=== PATIENT | male | born 1975 | race Caucasian/White ===

== ENCOUNTER 2017-01-28 08:32 | Emergency (ER) | payer OTHER ==
[~2017-01-28] VITALS: Ht 180.3 cm; Wt 113.4 kg
[~2017-01-28 08:32] MED LIST: ACULAR 0.5%3 ML OPH; AUGMENTIN 875875 MG PO; BACTRIM DS 8001 TA1 PO; CEPHALEXIN500 M1 PO; CIPROFLOXACIN500 MG PO; CLINDAMYCIN HC300 MG PO; CORTISPORIN SUS10 ML OT; CYCLOBENZAPRINE10 MG PO; FLEXERIL10 MG PO; HYDROCODONE BIT1 T11 PO; KEFLEX500 MG PO; MOTRIN800 MG PO; NORCO 325 MG-101 TAB PO; NORCO 325 MG-51 TAB PO; NORCO 5-325 TA1 EACH PO; PERCOCET 325 MG1 TA2 PO; PREDNISONE10 MG PO; TOBREX OPHTH S2.5 ML OPH; VICODIN 5/500 505 MG PO; VICODIN ES 7501 TAB PO; Vicodin 5/500 505 MG; XANAX0.5 MG PO; ZITHROMAX Z PA250 MG PO
[2017-01-28] MEDS ORDERED: CELECOXIB200 MG PO (09:29)
== END 2017-01-28 10:07 | disposition home or self-care (01) ==
LOC: ED 08:32
DX: M16.11 Unilateral primary osteoarthritis, right hip (principal); G89.29 Other chronic pain; F17.200 Nicotine dependence, unspecified, uncomplicated

== ENCOUNTER 2017-10-27 08:23 | Emergency (ER) | payer OTHER ==
[~2017-10-27] VITALS: Ht 182.8 cm; Wt 115.7 kg
[~2017-10-27 08:23] MED LIST changes: +CELECOXIB200 MG PO
[2017-10-27] MEDS ORDERED: AMOXICILLIN500 M2 PO (08:38)
[2017-10-27] MEDS ORDERED: NORCO 10-325 T1 EACH PO (08:38)
== END 2017-10-27 08:54 | disposition home or self-care (01) ==
LOC: ED 08:23
DX: K08.89 Other specified disorders of teeth and supporting structures (principal); R50.9 Fever, unspecified; G89.29 Other chronic pain

== ENCOUNTER 2018-01-26 10:03 | Emergency (ER) | payer OTHER ==
[~2018-01-26] VITALS: Ht 182.8 cm; Wt 113.4 kg
[~2018-01-26 10:03] MED LIST changes: +AMOXICILLIN500 M2 PO; +NORCO 10-325 T1 EACH PO
[2018-01-26] MEDS ORDERED: Motrin,Rufen800 MG PO ×2 (11:27)
[2018-01-26] MEDS ORDERED: NORCO 10-325 T1 EACH PO (11:27)
== END 2018-01-26 11:38 | disposition home or self-care (01) ==
LOC: ED 10:03
DX: M16.11 Unilateral primary osteoarthritis, right hip (principal); G89.29 Other chronic pain

== ENCOUNTER 2019-01-15 07:59 | Inpatient (IN) | payer BC ==
[~2019-01-15] VITALS: Ht 182.8 cm; Wt 112.5 kg
[2019-01-15] VITALS (9 sets, daily range): BP systolic 124–152; BP diastolic 74–94
[~2019-01-15 07:59] MED LIST changes: +Motrin,Rufen800 MG PO; +SEPTDS PO
[2019-01-15 08:54] LABS: BASO % 0.4 % (0.0-1.0); EOS # 0.1 10*3/uL (0.0-0.4); EOS % 1.2 % (1.0-4.0); HEMATOCRIT 50.5 % (42.0-52.0); HEMOGLOBIN 17.2 g/dl (14.0-18.0); LYMPH # 2.4 10*3/uL (1.3-4.4); LYMPH % 21.3 % (27.0-41.0); MEAN CELL VOLUME 90.3 fl (80.0-94.0); MEAN CORPUSCULAR HGB 30.8 pg (27.0-31.0); MEAN CORPUSCULAR HGB CONC 34.1 g/dl (33.0-37.0); MEAN PLATELET VOLUME 9.5 fl (9.6-12.3); MONO # 0.7 10*3/uL (0.1-1.0); MONO % 6.4 % (3.0-9.0); NEUT # 7.9 10*3/uL (2.3-7.9); NEUT % 70.2 % (47.0-73.0); PLATELET COUNT AUTOMATED 241 10*3/uL (130-400); RED BLOOD COUNT 5.59 10*6/uL (4.50-5.90); RED CELL DISTRI WIDTH 12.5 % (0-14.5); WHITE BLOOD COUNT 11.2 10*3/uL (4.8-10.8)
[2019-01-15 09:06] LABS: ACT PARTIAL THROMBO TIME 26.5 SECONDS (20.0-32.1); INTERNATIONAL NORM RATIO 0.9 (2.0-3.5)
[2019-01-15 09:10] LABS: ALBUMIN 3.9 gm/dl (3.1-4.5); ALKALINE PHOSPHATASE 85 U/L (45-117); BUN 15 mg/dl (7-24); CHLORIDE 104 mmol/L (98-107); CREATININE 1.17 mg/dL (0.70-1.30); SGOT/AST 16 IU/L (3-35); SGPT/ALT 33 U/L (12-78); SODIUM 137 mmol/L (136-145); TOTAL PROTEIN 7.7 gm/dL (6.4-8.2)
[2019-01-15] MEDS ORDERED: HYDROCODONE-AC1 EACH PO (11:23)
[2019-01-16] VITALS: BP 148/89
[2019-01-16 06:48] LABS: BASO % 0.3 % (0.0-1.0); EOS # 0.2 10*3/uL (0.0-0.4); EOS % 2.2 % (1.0-4.0); HEMATOCRIT 45.1 % (42.0-52.0); LYMPH # 2.7 10*3/uL (1.3-4.4); LYMPH % 37.4 % (27.0-41.0); MEAN CELL VOLUME 90.6 fl (80.0-94.0); MEAN CORPUSCULAR HGB 30.1 pg (27.0-31.0); MEAN CORPUSCULAR HGB CONC 33.3 g/dl (33.0-37.0); MEAN PLATELET VOLUME 9.8 fl (9.6-12.3); MONO # 0.5 10*3/uL (0.1-1.0); MONO % 7.1 % (3.0-9.0); NEUT # 3.8 10*3/uL (2.3-7.9); NEUT % 52.7 % (47.0-73.0); PLATELET COUNT AUTOMATED 194 10*3/uL (130-400); RED BLOOD COUNT 4.98 10*6/uL (4.50-5.90); RED CELL DISTRI WIDTH 12.5 % (0-14.5); WHITE BLOOD COUNT 7.2 10*3/uL (4.8-10.8)
[2019-01-16 07:08] LABS: BUN 11 mg/dl (7-24); CHLORIDE 106 mmol/L (98-107); CREATININE 0.86 mg/dL (0.70-1.30); SODIUM 138 mmol/L (136-145)
[2019-01-16] MEDS ORDERED: DOXYCYCLINE100 M3 PO (10:00)
== END 2019-01-16 10:23 | disposition home or self-care (01) | DRG 348 ==
LOC: ED 07:59 → EDHOLD 08:32 → 4E 08:32
PROVIDERS: Emergency Medicine; Family Medicine; ADMIT Family Medicine
PROC: 0D9Q0ZZ Drainage of Anus, Open Approach (ICD-10-PCS; principal; 2019-01-15)
PROC: 0DJD8ZZ Inspection of Lower Intestinal Tract, Via Natural or Artificial Opening Endoscopic (ICD-10-PCS; principal; 2019-01-15)
DX: K61.0 Anal abscess (principal); L02.215 Cutaneous abscess of perineum; M13.851 Other specified arthritis, right hip; K61.1 Rectal abscess; F17.210 Nicotine dependence, cigarettes, uncomplicated; D72.829 Elevated white blood cell count, unspecified; I10 Essential (primary) hypertension; R73.9 Hyperglycemia, unspecified; E83.41 Hypermagnesemia; R00.0 Tachycardia, unspecified; F41.9 Anxiety disorder, unspecified; M06.9 Rheumatoid arthritis, unspecified; Z84.89 Family history of other specified conditions; Z79.899 Other long term (current) drug therapy; Z71.6 Tobacco abuse counseling; Z83.3 Family history of diabetes mellitus

== ENCOUNTER 2019-04-08 09:42 | Emergency (ER) | payer BC ==
[~2019-04-08] VITALS: Ht 182.8 cm; Wt 113.4 kg
[~2019-04-08 09:42] MED LIST changes: +DOXYCYCLINE100 M3 PO; +HYDROCODONE-AC1 EACH PO
[2019-04-08] MEDS ORDERED: AUGMENTIN 875875 MG PO (10:23)
[2019-04-08] MEDS ORDERED: PERCOCET 5-3251 EACH PO (10:23)
== END 2019-04-08 10:37 | disposition left against medical advice (07) ==
LOC: ED 09:42
DX: K61.1 Rectal abscess (principal); R51 Headache; I10 Essential (primary) hypertension; F17.210 Nicotine dependence, cigarettes, uncomplicated; Z79.2 Long term (current) use of antibiotics

== ENCOUNTER 2019-05-07 08:23 | Emergency (ER) | payer BC ==
[~2019-05-07] VITALS: Ht 182.8 cm; Wt 115.7 kg
[~2019-05-07 08:23] MED LIST changes: +PERCOCET 5-3251 EACH PO
[2019-05-07 09:14] LABS: BASO % 0.7 % (0.0-1.0); EOS # 0.2 10*3/uL (0.0-0.4); EOS % 3.2 % (1.0-4.0); HEMATOCRIT 47.6 % (42.0-52.0); HEMOGLOBIN 16.2 g/dl (14.0-18.0); LYMPH # 2.2 10*3/uL (1.3-4.4); LYMPH % 39.1 % (27.0-41.0); MEAN CELL VOLUME 88.1 fl (80.0-94.0); MEAN PLATELET VOLUME 9.6 fl (9.6-12.3); MONO # 0.5 10*3/uL (0.1-1.0); MONO % 9.1 % (3.0-9.0); NEUT # 2.7 10*3/uL (2.3-7.9); NEUT % 47.2 % (47.0-73.0); PLATELET COUNT AUTOMATED 175 10*3/uL (130-400); RED CELL DISTRI WIDTH 12.6 % (0-14.5); WHITE BLOOD COUNT 5.7 10*3/uL (4.8-10.8)
[2019-05-07 09:30] LABS: ALBUMIN 3.7 gm/dl (3.1-4.5); ALKALINE PHOSPHATASE 82 U/L (45-117); BUN 9 mg/dl (7-24); CHLORIDE 108 mmol/L (98-107); CREATININE 0.86 mg/dL (0.70-1.30); SGOT/AST 22 IU/L (3-35); SGPT/ALT 52 U/L (12-78); SODIUM 139 mmol/L (136-145); TOTAL PROTEIN 7.2 gm/dL (6.4-8.2)
[2019-05-07] MEDS ORDERED: AUGMENTIN 875875 MG PO (11:56)
[2019-05-07] MEDS ORDERED: PERCOCET 5-3251 EACH PO (11:56)
== END 2019-05-07 12:04 | disposition home or self-care (01) ==
LOC: ED 08:23
PROVIDERS: Emergency Medicine
DX: K61.1 Rectal abscess (principal); L03.317 Cellulitis of buttock; I10 Essential (primary) hypertension; M06.9 Rheumatoid arthritis, unspecified; F17.210 Nicotine dependence, cigarettes, uncomplicated; Z79.2 Long term (current) use of antibiotics

== ENCOUNTER → 2021-05-09 | Outpatient (CLI) | payer BC | LOC: COVID19 15:49 | PROVIDERS: ATTEND Internal Medicine | DX: U07.1 COVID-19 (principal) ==

== ENCOUNTER 2021-06-12 12:38 | Emergency (ER) | payer BC ==
[~2021-06-12] VITALS: Ht 182.8 cm; Wt 124.3 kg
[~2021-06-12 12:38] MED LIST changes: -CLONAZEPAM1 MG PO; -LISINOPRIL10 M1 PO
[2021-06-12] MEDS ORDERED: LISINOPRIL10 M1 PO (12:58)
[2021-06-12] MEDS ORDERED: CLONAZEPAM1 MG PO (12:59)
== END 2021-06-12 13:35 | disposition left against medical advice (07) ==
LOC: ED 12:38
DX: M25.512 Pain in left shoulder (principal); Z53.21 Procedure and treatment not carried out due to patient leaving prior to being seen by health care provider

== ENCOUNTER → 2021-06-12 | Outpatient (CLI) | payer BC ==
[~2021-06-12] MED LIST changes: +CLONAZEPAM1 MG PO; +LISINOPRIL10 M1 PO
== END | disposition home or self-care (01) ==
LOC: RAD 13:26
PROVIDERS: ATTEND Family Medicine
DX: M19.011 Primary osteoarthritis, right shoulder (principal); M19.012 Primary osteoarthritis, left shoulder

== ENCOUNTER → 2022-05-22 | Outpatient (CLI) | payer BC ==
[~2022-05-22] MED LIST changes: +CLONAZEPAM1 MG PO; +LISINOPRIL10 M1 PO
[2022-05-22 15:09] LABS: BUN 9 mg/dl (9-23); CHLORIDE 101 mmol/L (98-107); CHOLESTEROL 163 mg/dL (<200); LDL CHOLESTEROL 79 mg/dL (9-159); TRIGLYCERIDES 263 mg/dl (<150)
== END | disposition home or self-care (01) ==
LOC: LAB 14:04
PROVIDERS: ATTEND Family Medicine
DX: Z13.1 Encounter for screening for diabetes mellitus (principal); Z13.220 Encounter for screening for lipoid disorders; E66.9 Obesity, unspecified

== ENCOUNTER 2023-02-12 09:35 | Emergency (ER) | payer OTHER ==
[~2023-02-12] VITALS: Wt 132.9 kg
[2023-02-12] MEDS ORDERED: 'KLONOPIN0.5 MG PO (11:51)
[2023-02-12] MEDS ORDERED: PERCOCET 10-321 EACH PO (11:51)
== END 2023-02-12 15:19 | disposition short-term general hospital (02) ==
LOC: ED 09:35
DX: S72.001A Fracture of unspecified part of neck of right femur, initial encounter for closed fracture (principal); S02.841A Fracture of lateral orbital wall, right side, initial encounter for closed fracture; M19.90 Unspecified osteoarthritis, unspecified site; F41.9 Anxiety disorder, unspecified; I10 Essential (primary) hypertension; F17.200 Nicotine dependence, unspecified, uncomplicated; V47.5XXA Car driver injured in collision with fixed or stationary object in traffic accident, initial encounter; Y93.89 Activity, other specified; Y92.89 Other specified places as the place of occurrence of the external cause; Y99.8 Other external cause status